=== PATIENT | female | born 1980 | race Caucasian/White ===

== ENCOUNTER 2018-12-08 12:49 | Inpatient (IN) | payer MEDICAID ==
[2018-12-08 14:22] LABS: RUPTURE FETAL MEMBRANES POSITIVE (NEGATIVE)
[2018-12-08] MEDS ORDERED: GLUCOSE GEL 15 GRAM TUBE PO ×2 (19:30)
[2018-12-08] MEDS ORDERED: GLUCAGON 1 MG INJ IM (19:30)
[2018-12-08] MEDS ORDERED: DEXTROSE 50% 50 ML SYRINGE IV ×2 (19:30)
[2018-12-08] MEDS ORDERED: GLUCOSE GEL 15 GRAM TUBE BUCCAL (19:30)
[2018-12-08] MEDS: LACTATED RINGER'S 1,000 ML IV (20:03)
[2018-12-08] MEDS: AMPICILLIN 2 GM/NS (PMX) 100 ML IV (20:07)
[2018-12-08] MEDS: BETAMET NA PHOS/AC(6 MG/ML) 2 ML INJ SYG IM (20:14)
[2018-12-08] MEDS ORDERED: MAGNESIUM SULFATE 4 GM/100 ML 100 ML (20:52)
[2018-12-08] MEDS ORDERED: INSULIN LISPRO 100 UNIT/ML VIAL SC (21:00)
[2018-12-08] MEDS: ACCU-CHEK XX (21:00)
[2018-12-08] MEDS: NPH, HUMAN INSULIN ISOPHANE 3ML VIAL SC (21:04)
[2018-12-08] MEDS: MAGNESIUM SULFATE 4 GM/100 ML 100 ML IV (21:17)
[2018-12-08 21:30] LABS: ADD MAN DIFF? NO
[2018-12-08 21:36] LABS: BASOPHILS % 0.3 % (0.0-2.0); EOSINOPHILS # 0.1 10^3/ul (0.0-0.5); EOSINOPHILS % 0.5 % (0.0-7.0); HEMATOCRIT 33.8 % (37.0-47.0); HEMOGLOBIN 11.1 g/dl (12.0-16.0); LYMPHOCYTES # 2.2 10^3/ul (0.8-2.9); LYMPHOCYTES % 23.1 % (15.0-51.0); MEAN CORPUSCULAR HEMOGLOBIN 29.6 pg (29.0-33.0); MEAN CORPUSCULAR HGB CONC 32.8 g/dl (32.0-37.0); MEAN CORPUSCULAR VOLUME 90.1 fl (82.0-101.0); MEAN PLATELET VOLUME 10.8 fl (7.4-10.4); MONOCYTE # 0.5 10^3/ul (0.3-0.9); MONOCYTES % 5.8 % (0.0-11.0); NEUTROPHIL # 6.5 10^3/ul (1.6-7.5); PLATELET COUNT 209 10^3/UL (140-415); RED BLOOD COUNT 3.75 10^6/ul (4.20-5.40); RED CELL DISTRIBUTION WIDTH 13.6 % (11.5-14.5)
[2018-12-08 21:36] LABS: WHITE BLOOD COUNT 9.3 10^3/ul (4.8-10.8)
[2018-12-08] MEDS: AZITHROMYCIN 500MG/NS (PMX) 250 ML IVPB (21:37)
[2018-12-08] MEDS: MAGNESIUM SULFATE 20 GM/500 ML 500 ML IV (21:42)
[2018-12-08 21:55] LABS: INR 0.92; PROTIME 12.5 Sec (11.9-14.9)
[2018-12-08 21:56] LABS: PARTIAL THROMBOPLASTIN TIME 27.7 Sec (23.0-35.0)
[2018-12-08 22:28] LABS: HEPATITIS B SURFACE ANTIGEN NEGATIVE (NEGATIVE)
[2018-12-09] MEDS ORDERED: AMPICILLIN 1 GM/NS (PMX) 50 ML IV
[2018-12-09] MEDS ORDERED: ERYTHROMYCIN LACTOBIONATE 500 MG in SOD CHLORIDE 0.9% 100 ML IVPB
[2018-12-09] MEDS: AMPICILLIN 2 GM/NS (PMX) 100 ML IVPB ×4 (02:25→20:20)
[2018-12-09 07:09] LABS: MAGNESIUM 4.7 mg/dl (1.7-2.5)
[2018-12-09] MEDS: ACCU-CHEK XX ×5 (07:30→20:20)
[2018-12-09] MEDS: MAGNESIUM SULFATE 20 GM/500 ML 500 ML IV ×2 (07:32→16:46)
[2018-12-09] MEDS: INSULIN LISPRO 100 UNIT/ML VIAL SC ×2 (09:57→17:54)
[2018-12-09] MEDS: NPH, HUMAN INSULIN ISOPHANE 3ML VIAL SC ×2 (09:58→21:51)
[2018-12-09] MEDS: LACTATED RINGER'S 1,000 ML IV ×2 (12:56→19:30)
[2018-12-09 16:08] LABS: RAPID PLASMA REAGIN NONREACTIVE (NR)
[2018-12-09] MEDS ORDERED: INSULIN ASPART [NOVOLOG] 3 ML PEN SC (18:05)
[2018-12-09 19:00] LABS: MAGNESIUM 5.2 mg/dl (1.7-2.5)
[2018-12-09] MEDS: INSULIN ASPART [NOVOLOG] 3 ML PEN SC (20:05)
[2018-12-09] MEDS: AZITHROMYCIN 500MG/NS (PMX) 250 ML IVPB (21:45)
[2018-12-09] MEDS: BETAMET NA PHOS/AC(6 MG/ML) 2 ML INJ SYG IM (22:15)
[2018-12-10 01:00] LABS: MAGNESIUM 4.7 mg/dl (1.7-2.5)
[2018-12-10] MEDS: AMPICILLIN 2 GM/NS (PMX) 100 ML IVPB ×2 (02:36→08:09)
[2018-12-10] MEDS: MAGNESIUM SULFATE 20 GM/500 ML 500 ML IV (05:28)
[2018-12-10] MEDS: NPH, HUMAN INSULIN ISOPHANE 3ML VIAL SC ×2 (07:35→21:54)
[2018-12-10] MEDS: LACTATED RINGER'S 1,000 ML IV ×3 (08:09→16:47)
[2018-12-10 08:34] LABS: MAGNESIUM 4.6 mg/dl (1.7-2.5)
[2018-12-10] MEDS ORDERED: METHYLERGONOVINE 0.2 MG INJ IM ×2 (09:00→17:00)
[2018-12-10] MEDS ORDERED: MISOPROSTOL 200 MCG TAB PR ×2 (09:00→17:00)
[2018-12-10] MEDS ORDERED: OXYTOCIN 30 UNITS/LR 500 ML IV ×3 (09:00→17:00)
[2018-12-10] MEDS ORDERED: CARBOPROST 250 MCG INJ IM ×2 (09:00→17:00)
[2018-12-10] MEDS ORDERED: CEFAZOLIN 2 GM/50 ML (PMX) 50 ML IVPB (09:00)
[2018-12-10 09:18] LABS: ADD MAN DIFF? NO
[2018-12-10 09:25] LABS: BASOPHILS % 0.1 % (0.0-2.0); HEMATOCRIT 33.8 % (37.0-47.0); LYMPHOCYTES # 1.2 10^3/ul (0.8-2.9); LYMPHOCYTES % 12.2 % (15.0-51.0); MEAN CORPUSCULAR HEMOGLOBIN 29.5 pg (29.0-33.0); MEAN CORPUSCULAR HGB CONC 32.5 g/dl (32.0-37.0); MEAN CORPUSCULAR VOLUME 90.6 fl (82.0-101.0); MEAN PLATELET VOLUME 10.8 fl (7.4-10.4); MONOCYTE # 0.3 10^3/ul (0.3-0.9); MONOCYTES % 2.5 % (0.0-11.0); NEUTROPHIL # 8.5 10^3/ul (1.6-7.5); NEUTROPHILS % 84.7 % (39.0-77.0); PLATELET COUNT 214 10^3/UL (140-415); RED BLOOD COUNT 3.73 10^6/ul (4.20-5.40); RED CELL DISTRIBUTION WIDTH 13.7 % (11.5-14.5)
[2018-12-10 09:40] LABS: INR 0.97
[2018-12-10 09:41] LABS: PARTIAL THROMBOPLASTIN TIME 26.3 Sec (23.0-35.0)
[2018-12-10 09:43] LABS: ALANINE AMINOTRANSFERASE 16 IU/L (13-69); ALBUMIN 3.5 g/dl (3.3-4.9); ALBUMIN/GLOBULIN RATIO 1.02; ALKALINE PHOSPHATASE 109 IU/L (42-121); ANION GAP 9 (5-13); ASPARTATE AMINO TRANSFERASE 19 IU/L (15-46); BILIRUBIN,INDIRECT 0.4 mg/dl (0-1.1); BILIRUBIN,TOTAL 0.4 mg/dl (0.2-1.3); BLOOD UREA NITROGEN 9 mg/dl (7-20); CALCIUM 7.3 mg/dl (8.4-10.2); CARBON DIOXIDE 20 mmol/L (21-31); CHLORIDE 107 mmol/L (97-110); Estimated GFR > 60 mL/min (>60); GLUCOSE 137 mg/dl (70-220); SODIUM 136 mmol/L (135-144); TOTAL PROTEIN 6.9 g/dl (6.1-8.1)
[2018-12-10] MEDS ORDERED: PHENYLephrine (100 MCG/ML) 10ML SYG (13:17)
[2018-12-10] MEDS ORDERED: EPHEDrine 25 MG/5 ML SYG (13:17)
[2018-12-10] MEDS ORDERED: morphine SULFATE/PF (10 MG/10 ML) INJ (13:17)
[2018-12-10] MEDS ORDERED: ONDANSETRON 4 MG INJ (13:23)
[2018-12-10] MEDS ORDERED: MIDAZOLAM 1 MG/ML 2 ML INJ (13:36)
[2018-12-10] MEDS ORDERED: LACTATED RINGER'S 1,000 ML IV (13:52)
[2018-12-10] MEDS ORDERED: HYDROmorphONE 0.5 MG/0.5 ML SYG IV ×2 (14:00)
[2018-12-10] MEDS ORDERED: ONDANSETRON 4 MG INJ IV ×2 (14:00→17:00)
[2018-12-10] MEDS ORDERED: NALBUPHINE HCL (10 MG/1 ML) INJ IV (14:00)
[2018-12-10] MEDS ORDERED: ZOLPIDEM 5 MG TAB PO (14:00)
[2018-12-10] MEDS ORDERED: MEPERIDINE 25 MG INJ IV (14:00)
[2018-12-10] MEDS ORDERED: MIDAZOLAM 1 MG/ML 2 ML INJ IV (14:00)
[2018-12-10] MEDS ORDERED: DIPHENHYDRAMINE 50 MG INJ IV ×2 (14:00)
[2018-12-10] MEDS ORDERED: NALOXONE (0.4 MG/ML) INJ IV (14:00)
[2018-12-10] MEDS ORDERED: DIPHENHYDRAMINE 50 MG INJ (14:44)
[2018-12-10] MEDS ORDERED: METOCLOPRAMIDE 10 MG INJ (14:45)
[2018-12-10] MEDS ORDERED: OXYTOCIN 10 UNIT INJ (14:45)
[2018-12-10] MEDS: OXYTOCIN 30 UNITS/LR 500 ML IV ×3 (16:26→21:18)
[2018-12-10] MEDS ORDERED: ACETAMINOPHEN 325 MG TAB PO (17:00)
[2018-12-10] MEDS ORDERED: MAGNESIUM HYDROXIDE 30ML CUP PO (17:00)
[2018-12-10] MEDS: KETOROLAC 30 MG INJ IV (17:16)
[2018-12-10] MEDS: CEFAZOLIN 1 GM/50 ML (PMX) 50 ML IVPB (17:16)
[2018-12-10] MEDS: ACCU-CHEK XX (20:05)
[2018-12-10] MEDS: INSULIN ASPART [NOVOLOG] 3 ML PEN SC (21:53)
[2018-12-11] MEDS: CEFAZOLIN 1 GM/50 ML (PMX) 50 ML IVPB ×2 (01:36→08:57)
[2018-12-11] MEDS: KETOROLAC 30 MG INJ IV (04:55)
[2018-12-11] MEDS: LACTATED RINGER'S 1,000 ML IV (05:11)
[2018-12-11] MEDS: ACCU-CHEK XX ×4 (07:30→21:24)
[2018-12-11 07:46] LABS: ADD MAN DIFF? NO
[2018-12-11 07:53] LABS: BASOPHILS % 0.2 % (0.0-2.0); HEMATOCRIT 28.6 % (37.0-47.0); LYMPHOCYTES # 2.2 10^3/ul (0.8-2.9); LYMPHOCYTES % 15.7 % (15.0-51.0); MEAN CORPUSCULAR HEMOGLOBIN 29.9 pg (29.0-33.0); MEAN CORPUSCULAR HGB CONC 31.5 g/dl (32.0-37.0); MEAN PLATELET VOLUME 11.1 fl (7.4-10.4); MONOCYTE # 1.4 10^3/ul (0.3-0.9); MONOCYTES % 10.1 % (0.0-11.0); NEUTROPHIL # 10.1 10^3/ul (1.6-7.5); NEUTROPHILS % 73.4 % (39.0-77.0); PLATELET COUNT 204 10^3/UL (140-415); RED BLOOD COUNT 3.01 10^6/ul (4.20-5.40)
[2018-12-11 07:53] LABS: WHITE BLOOD COUNT 13.7 10^3/ul (4.8-10.8)
[2018-12-11 08:25] LABS: ALANINE AMINOTRANSFERASE 13 IU/L (13-69); ALBUMIN 2.7 g/dl (3.3-4.9); ALBUMIN/GLOBULIN RATIO 0.93; ALKALINE PHOSPHATASE 68 IU/L (42-121); ANION GAP 4 (5-13); ASPARTATE AMINO TRANSFERASE 29 IU/L (15-46); BILIRUBIN,INDIRECT 0.4 mg/dl (0-1.1); BILIRUBIN,TOTAL 0.4 mg/dl (0.2-1.3); BLOOD UREA NITROGEN 17 mg/dl (7-20); CALCIUM 8.1 mg/dl (8.4-10.2); CARBON DIOXIDE 27 mmol/L (21-31); CHLORIDE 105 mmol/L (97-110); CREATININE 0.63 mg/dl (0.44-1.00); Estimated GFR > 60 mL/min (>60); GLUCOSE 59 mg/dl (70-220); POTASSIUM 4.5 mmol/L (3.5-5.1); SODIUM 136 mmol/L (135-144); TOTAL PROTEIN 5.6 g/dl (6.1-8.1)
[2018-12-11] MEDS: metFORMIN 500 MG TAB PO ×2 (08:57→18:42)
[2018-12-11] MEDS: LANOLIN HPA 1 PKT TOP (09:34)
[2018-12-11] MEDS: INSULIN ASPART [NOVOLOG] 3 ML PEN SC ×3 (10:05→20:05)
[2018-12-11] MEDS: BISACODYL 10 MG SUPP PR (14:40)
[2018-12-11] MEDS: IBUPROFEN 600 MG TAB PO (14:40)
[2018-12-11] MEDS: OXYCODONE/ACETAMINOPHEN (5/325) TAB PO (15:51)
[2018-12-12] MEDS: OXYCODONE/ACETAMINOPHEN (5/325) TAB PO ×3 (00:10→22:59)
[2018-12-12] MEDS: ACCU-CHEK XX ×4 (07:30→20:26)
[2018-12-12] MEDS: IBUPROFEN 600 MG TAB PO ×2 (07:57→14:02)
[2018-12-12] MEDS: metFORMIN 500 MG TAB PO ×2 (09:14→18:26)
[2018-12-12] MEDS: INSULIN ASPART [NOVOLOG] 3 ML PEN SC ×3 (10:57→20:36)
[2018-12-12] MEDS: LANOLIN HPA 1 PKT TOP (16:59)
[2018-12-13] MEDS: IBUPROFEN 600 MG TAB PO ×2 (03:59→11:00)
[2018-12-13] MEDS: OXYCODONE/ACETAMINOPHEN (5/325) TAB PO ×2 (03:59→09:12)
[2018-12-13] MEDS: metFORMIN 500 MG TAB PO (09:11)
[2018-12-13] MEDS: SENNA/DOCUSATE NA (8.6MG/50MG) TAB PO (09:12)
[2018-12-13] MEDS: INSULIN ASPART [NOVOLOG] 3 ML PEN SC (11:13)
== END 2018-12-13 01:10 | disposition home or self-care (01) | DRG 784 ==
LOC: OBT 12:49 → L-D 12-10 08:25 → PP1 12-10 18:35 → OBT 18:37 → L-D 18:50 → PP1 23:32
PROVIDERS: Specialist
PROC: 10D00Z1 Extraction of Products of Conception, Low, Open Approach (ICD-10-PCS; principal; 2018-12-10)
PROC: 0UB70ZZ Excision of Bilateral Fallopian Tubes, Open Approach (ICD-10-PCS; 2018-12-10)
PROC: 0UB10ZZ Excision of Left Ovary, Open Approach (ICD-10-PCS; 2018-12-10)
DX: O60.14X0 Preterm labor third trimester with preterm delivery third trimester, not applicable or unspecified (principal); O24.313 Unspecified pre-existing diabetes mellitus in pregnancy, third trimester; Z3A.33 33 weeks gestation of pregnancy; Z37.0 Single live birth; D27.1 Benign neoplasm of left ovary; Z30.2 Encounter for sterilization; O34.211 Maternal care for low transverse scar from previous cesarean delivery; E11.9 Type 2 diabetes mellitus without complications; Z79.4 Long term (current) use of insulin; O36.8130 Decreased fetal movements, third trimester, not applicable or unspecified
CPT/HCPCS: 76815; 76818; 80053; 82962; 83735; 84112; 85025; 85610; 85730; 86592; 86850; 86900; 86901; 87081; 87086; 87210; 87340; 88302; 88305; 88307; 99464